=== PATIENT | female | born 1950 | race Caucasian/White ===

== ENCOUNTER → 2017-12-22 | Outpatient (CLI) | payer BC, OTHER ==
[~2017-12-22] MED LIST: CENTRUM SILVER1 EAC1 PO; CITRACAL + BON1 EACH PO; FISH OIL 1,001000 MG PO; OCUVITE TABLET1 EAC1 PO; VITAMIN D400 UNI1 PO; WELCHOL 625 MG625 MG PO
== END ==
LOC: M.RAD 07:45
DX: Z12.31 Encounter for screening mammogram for malignant neoplasm of breast (principal)

== ENCOUNTER → 2019-03-25 | Outpatient (CLI) | payer BC, MEDICARE, OTHER | LOC: M.RAD 07:00 | DX: Z12.31 Encounter for screening mammogram for malignant neoplasm of breast (principal) ==

== ENCOUNTER → 2020-05-15 | Outpatient (CLI) | payer BC, MEDICARE, OTHER | LOC: M.RAD 10:59 | PROVIDERS: ATTEND Family Medicine | DX: Z12.31 Encounter for screening mammogram for malignant neoplasm of breast (principal) ==

== ENCOUNTER → 2021-05-03 | Outpatient (CLI) | payer BC, MEDICARE, OTHER | LOC: M.RAD 16:13 | PROVIDERS: ATTEND Family Medicine | DX: Z12.31 Encounter for screening mammogram for malignant neoplasm of breast (principal) ==